=== PATIENT | female | born 1960 | race Caucasian/White ===

== ENCOUNTER 2017-03-02 13:55 | Emergency (ER) | payer MEDICARE, MEDICAID ==
[~2017-03-02] VITALS: Ht 157.5 cm; Wt 60.0 kg
[~2017-03-02 13:55] MED LIST: ALBU8.5H3 INH; ASPI-496 PO; ATOR10TA PO; CEFD300C2 PO; FLUT10.6 INH; HYDR-3240 PO; LEVO750T26 PO; PRED20TA PO; [UNRECOGNIZED DRUG - CODE] PO
[2017-03-02 14:08] VITALS: BP 120/73
== END 2017-03-02 15:00 | disposition home or self-care (01) ==
LOC: ED 14:50
DX: J45.909 Unspecified asthma, uncomplicated (principal); F12.10 Cannabis abuse, uncomplicated; J44.9 Chronic obstructive pulmonary disease, unspecified; F19.10 Other psychoactive substance abuse, uncomplicated
CPT/HCPCS: 99283

== ENCOUNTER 2017-03-06 11:05 | Emergency (ER) | payer MEDICARE, MEDICAID ==
[~2017-03-06] VITALS: Ht 157.5 cm; Wt 62.2 kg
[2017-03-06] MEDS ORDERED: SODIUM CHLORIDE FLUSH 10ML SYR IVF ONE (14:00)
[2017-03-06] MEDS ORDERED: FAMOTIDINE 20 MG/2 ML IVP ONE (14:00)
[2017-03-06] MEDS ORDERED: SODIUM CHLORIDE 0.9% 1,000ML IVBOLUS ONE (14:00)
[2017-03-06] MEDS ORDERED: ONDANSETRON 2MG/ML, 2ML IVPush ONE (14:00)
[2017-03-06] MEDS ORDERED: KETOROLAC 30 MG/1 ML IVPush ONE (14:00)
[2017-03-06 14:32] LABS: ASPARTATE AMINO TRANSFERASE 21 U/L (15-37); BLOOD UREA NITROGEN 13 mg/dL (7-18)
[2017-03-06] MEDS ORDERED: ONDANSETRON 2MG/ML, 2ML ONE (14:42)
[2017-03-06] MEDS ORDERED: KETOROLAC 30 MG/1 ML ONE (14:42)
[2017-03-06] MEDS ORDERED: FAMOTIDINE 20 MG/2 ML ONE (14:43)
[2017-03-06 15:23] VITALS: BP 120/60
== END 2017-03-06 16:02 | disposition home or self-care (01) ==
LOC: ED 15:11
DX: R10.33 Periumbilical pain (principal); J44.9 Chronic obstructive pulmonary disease, unspecified; J45.909 Unspecified asthma, uncomplicated; Z90.710 Acquired absence of both cervix and uterus; Z87.01 Personal history of pneumonia (recurrent)
CPT/HCPCS: 36415; 74022; 80053; 81001; 83690; 85025; 96374; 96375; 99285; J1885; J2405; J7030; S0028

== ENCOUNTER 2017-03-21 17:57 | Emergency (ER) | payer MEDICARE, MEDICAID ==
[~2017-03-21] VITALS: Ht 157.5 cm; Wt 60.0 kg
[2017-03-21 18:31] VITALS: BP 120/83
== END 2017-03-21 19:14 | disposition home or self-care (01) ==
LOC: ED 18:39
DX: K41.91 Unilateral femoral hernia, without obstruction or gangrene, recurrent (principal); J44.9 Chronic obstructive pulmonary disease, unspecified; J45.909 Unspecified asthma, uncomplicated; K29.70 Gastritis, unspecified, without bleeding; F12.10 Cannabis abuse, uncomplicated; Z90.710 Acquired absence of both cervix and uterus; Z98.890 Other specified postprocedural states; Z98.51 Tubal ligation status
CPT/HCPCS: 99283

== ENCOUNTER 2017-03-26 03:38 | Emergency (ER) | payer MEDICARE, MEDICAID ==
[~2017-03-26] VITALS: Ht 154.9 cm; Wt 57.0 kg
[~2017-03-26 03:38] MED LIST changes: -CEFD300C2 PO; +CEFD300C37 PO
[2017-03-26 03:40] VITALS: BP 124/78
== END 2017-03-26 04:41 | disposition home or self-care (01) ==
LOC: ED 04:04
DX: M79.672 Pain in left foot (principal); M79.671 Pain in right foot; J44.9 Chronic obstructive pulmonary disease, unspecified; Z90.710 Acquired absence of both cervix and uterus; Z98.51 Tubal ligation status; Z93.0 Tracheostomy status
CPT/HCPCS: 99283

== ENCOUNTER 2017-03-26 13:07 | Emergency (ER) | payer MEDICARE, MEDICAID ==
[~2017-03-26] VITALS: Ht 170.2 cm; Wt 70.0 kg
[2017-03-26 13:08] VITALS: BP 145/90
[2017-03-26] MEDS ORDERED: SODIUM CHLORIDE 0.9% 1,000 ML IV ONE (13:21)
[2017-03-26] MEDS ORDERED: FAMOTIDINE 20 MG/2 ML IVP ONE (13:30)
[2017-03-26] MEDS ORDERED: MAALOX/HYOSCYAMINE/LIDOCAINE 45 ML BOTTLE PO ONE (13:30)
[2017-03-26] MEDS ORDERED: ONDANSETRON 2MG/ML, 2ML IVPush ONE (13:30)
[2017-03-26 14:04] LABS: ASPARTATE AMINO TRANSFERASE 27 U/L (15-37); BLOOD UREA NITROGEN 10 mg/dL (7-18)
[2017-03-26] MEDS ORDERED: MAALOX/HYOSCYAMINE/LIDOCAINE 45 ML BOTTLE ONE (14:31)
[2017-03-26] MEDS ORDERED: ONDANSETRON 2MG/ML, 2ML ONE (14:32)
[2017-03-26] MEDS ORDERED: FAMOTIDINE 20 MG/2 ML ONE (14:32)
[2017-03-26] MEDS ORDERED: CEFTRIAXONE PMX 1GM/50ML 50 ML IV SCH (16:00)
[2017-03-26 16:29] LABS: DAU SCREEN DISCLAIMER
[2017-03-26] MEDS ORDERED: CEFTRIAXONE PMX 1GM/50ML 50 ML ONE (16:29)
[2017-03-26 16:37] LABS: PATH.CAST-FLAG NOT PRESENT; SPERM-FLAG NOT PRESENT; SRC-FLAG NOT PRESENT; XTAL-FLAG NOT PRESENT; YLC-FLAG NOT PRESENT
== END 2017-03-26 17:41 | disposition home or self-care (01) ==
LOC: ED 13:51
DX: J44.1 Chronic obstructive pulmonary disease with (acute) exacerbation (principal); J01.00 Acute maxillary sinusitis, unspecified; N30.20 Other chronic cystitis without hematuria; I10 Essential (primary) hypertension; F10.20 Alcohol dependence, uncomplicated; Z90.710 Acquired absence of both cervix and uterus; Z98.51 Tubal ligation status; Z88.1 Allergy status to other antibiotic agents; Z91.012 Allergy to eggs
CPT/HCPCS: 36415; 70450; 71010; 76700; 80053; 80307; 81001; 83605; 83690; 85025; 87040; 87077; 87086; 87186; 93005; 96361; 96365; 96375; 99285; J0696; J2405; J7030; J7512; S0028

== ENCOUNTER 2017-04-06 13:37 | Emergency (ER) | payer MEDICARE, MEDICAID ==
[~2017-04-06] VITALS: Ht 144.8 cm; Wt 58.0 kg
[2017-04-06 13:56] VITALS: BP 120/60
== END 2017-04-06 14:14 | disposition home or self-care (01) ==
LOC: ED 13:54
DX: K40.91 Unilateral inguinal hernia, without obstruction or gangrene, recurrent (principal); R10.31 Right lower quadrant pain; J44.9 Chronic obstructive pulmonary disease, unspecified; Z90.710 Acquired absence of both cervix and uterus; Z98.51 Tubal ligation status; Z88.1 Allergy status to other antibiotic agents; Z91.012 Allergy to eggs
CPT/HCPCS: 99283

== ENCOUNTER 2017-06-11 23:06 | Emergency (ER) | payer MEDICARE, MEDICAID ==
[~2017-06-11] VITALS: Ht 157.5 cm; Wt 59.0 kg
[2017-06-11 23:08] VITALS: BP 141/86
== END 2017-06-12 01:31 | disposition home or self-care (01) ==
LOC: ED 23:25
DX: J45.31 Mild persistent asthma with (acute) exacerbation (principal); Z87.891 Personal history of nicotine dependence; F12.90 Cannabis use, unspecified, uncomplicated
CPT/HCPCS: 71020; 93005; 99284; J7512

== ENCOUNTER 2017-08-14 19:29 | Observation (INO) | payer MEDICARE, MEDICAID ==
[~2017-08-14] VITALS: Ht 157.5 cm; Wt 53.0 kg
[~2017-08-14 19:29] MED LIST changes: -ALBU8.5H3 INH; +ALBU8.5H8 INH
[2017-08-14] MEDS ORDERED: MAALOX/HYOSCYAMINE/LIDOCAINE 45 ML BTL ONE (19:45)
[2017-08-14] MEDS ORDERED: LORazepam 1MG TABLET ONE (19:45)
[2017-08-14 19:54] LABS: HEMATOCRIT 40.2 % (34.6-47.8); WHITE BLOOD COUNT 6.5 x10^3/uL (3.4-10)
[2017-08-14] MEDS ORDERED: MAALOX/HYOSCYAMINE/LIDOCAINE 45 ML BTL PO ONE (20:00)
[2017-08-14] MEDS ORDERED: LORazepam 1MG TABLET PO ONE (20:00)
[2017-08-14] MEDS ORDERED: PLEASE ENTER HEIGHT AND WEIGHT MC SCH (20:00)
[2017-08-14 20:06] LABS: ASPARTATE AMINO TRANSFERASE 20 U/L (15-37); BLOOD UREA NITROGEN 7 mg/dL (7-18)
[2017-08-14 21:07] LABS: ACETAMINOPHEN < 2 mcg/mL (10-30)
[2017-08-15] MEDS ORDERED: BISACODYL 10 MG SUPP PR PRN (01:00)
[2017-08-15] MEDS ORDERED: ALBUTEROL SULFATE 2.5 MG/3 ML NPPB PRN (01:00)
[2017-08-15] MEDS ORDERED: POLYETHYLENE GLYCOL 17 GM PACKET PO PRN (01:00)
[2017-08-15] MEDS ORDERED: LORazepam 1MG TABLET PO PRN (01:00)
[2017-08-15] MEDS ORDERED: ONDANSETRON ODT 4 MG PO PRN (01:00)
[2017-08-15] MEDS ORDERED: ACETAMINOPHEN 325 MG TABLET PO PRN (01:00)
[2017-08-15 01:12] LABS: FERRITIN 14.6 ng/mL (8-252)
[2017-08-15 06:43] LABS: DAU SCREEN DISCLAIMER
[2017-08-15] MEDS: OLANZAPINE 2.5 MG TABLET PO SCH ×2 (07:04→20:36)
[2017-08-15 07:14] LABS: PATH.CAST-FLAG NOT PRESENT; SPERM-FLAG NOT PRESENT; SRC-FLAG NOT PRESENT; XTAL-FLAG NOT PRESENT; YLC-FLAG NOT PRESENT
[2017-08-15] MEDS ORDERED: SENNA/DOCUSATE TABLET ONE (08:03)
[2017-08-15] MEDS ORDERED: ONDANSETRON ODT 4 MG ONE (08:03)
[2017-08-15] MEDS ORDERED: LORazepam 1MG TABLET ONE (08:03)
[2017-08-15] MEDS ORDERED: ASPIRIN 81 MG TABLET CHEW ONE (08:04)
[2017-08-15] MEDS: SENNA/DOCUSATE TABLET PO SCH (08:07)
[2017-08-15] MEDS: ASPIRIN 81 MG TABLET EC PO SCH (09:49)
[2017-08-15 18:27] VITALS: BP 145/95
[2017-08-15 19:51] VITALS: BP 143/87
[2017-08-16] MEDS ORDERED: FERROUS SULFATE 325 MG TABLET PO SCH (08:00)
[2017-08-16 08:15] VITALS: BP 133/77
[2017-08-16] MEDS: SENNA/DOCUSATE TABLET PO SCH (08:24)
[2017-08-16] MEDS: ASPIRIN 81 MG TABLET EC PO SCH (08:24)
[2017-08-16 19:31] VITALS: BP 157/91
[2017-08-16] MEDS: OLANZAPINE 2.5 MG TABLET PO SCH (20:06)
== END 2017-08-16 20:30 ==
LOC: ED 21:48 → EDIP 08-15 00:39 → 3E 08-15 18:17
PROVIDERS: ADMIT Family Medicine; ATTEND Family Medicine
DX: R45.851 Suicidal ideations (principal); F31.9 Bipolar disorder, unspecified; R10.30 Lower abdominal pain, unspecified; I10 Essential (primary) hypertension; J44.9 Chronic obstructive pulmonary disease, unspecified; F12.10 Cannabis abuse, uncomplicated; E61.1 Iron deficiency; Z86.19 Personal history of other infectious and parasitic diseases; Z87.19 Personal history of other diseases of the digestive system; Z98.51 Tubal ligation status; Z90.710 Acquired absence of both cervix and uterus
CPT/HCPCS: 36415; 80053; 80307; 80329; 81001; 82728; 83540; 83550; 83690; 85025; 87086; 93005; 94640; 99285; G0378; Q0162; J7613; G0479; G0480

== ENCOUNTER 2017-12-28 22:02 | Emergency (ER) | payer MEDICARE, MEDICAID ==
[~2017-12-28] VITALS: Ht 157.5 cm; Wt 49.0 kg
[~2017-12-28 22:02] MED LIST changes: +ALBU18HF INH; +TRAZ100T15 PO
[2017-12-28 22:06] VITALS: BP 104/79
[2017-12-29] MEDS ORDERED: ALBUTEROL/IPRATROPIUM 2.5MG/0.5MG, 3 ML ONE ×2 (00:48→00:49)
[2017-12-29] MEDS ORDERED: ALBUTEROL/IPRATROPIUM 2.5MG/0.5MG, 3 ML NPPB SCH (01:00)
== END 2017-12-29 01:58 | disposition home or self-care (01) ==
LOC: ED 12-29 00:18
DX: J45.31 Mild persistent asthma with (acute) exacerbation (principal); I10 Essential (primary) hypertension; Z90.710 Acquired absence of both cervix and uterus
CPT/HCPCS: 71045; 94640; 99283; J7512

== ENCOUNTER 2018-01-17 23:30 | Emergency (ER) | payer MEDICARE, MEDICAID ==
[~2018-01-17] VITALS: Ht 157.5 cm; Wt 50.0 kg
[~2018-01-17 23:30] MED LIST changes: +ALBU2.5V NPPB
[2018-01-18] MEDS ORDERED: predniSONE 50MG TABLET PO STA (00:29)
[2018-01-18 00:35] VITALS: BP 136/74
== END 2018-01-18 00:53 | disposition home or self-care (01) ==
LOC: ED 23:59
DX: J45.41 Moderate persistent asthma with (acute) exacerbation (principal); I10 Essential (primary) hypertension; Z90.710 Acquired absence of both cervix and uterus; Z98.51 Tubal ligation status; F17.200 Nicotine dependence, unspecified, uncomplicated
CPT/HCPCS: 99283; J7512

== ENCOUNTER 2018-02-13 00:18 | Emergency (ER) | payer MEDICARE, MEDICAID ==
[~2018-02-13] VITALS: Ht 157.5 cm; Wt 50.0 kg
[2018-02-13] MEDS ORDERED: RANI-276 PO (00:41)
[2018-02-13] MEDS ORDERED: FLUT100D INH (00:41)
[2018-02-13 01:16] LABS: BASOPHILS # (AUTO) 0.03 x10^3/uL (0-0.1); BASOPHILS % (AUTO) 1 % (0-1); EOSINOPHILS # (AUTO) 0.69 x10^3/uL (0-0.4); EOSINOPHILS % (AUTO) 10 % (1-7); LYMPHOCYTES # (AUTO) 1.04 x10^3/uL (1-3.4); LYMPHOCYTES % (AUTO) 15 % (22-44); MD NO; MEAN CORPUSCULAR HGB CONC 33.3 g/dL (32.4-35.8); MEAN CORPUSCULAR VOLUME 83.9 fL (80-100); MEAN PLATELET VOLUME 7.3 fL (7.4-10.4); MONOCYTES # (AUTO) 0.51 x10^3/uL (0.2-0.8); MONOCYTES % (AUTO) 8 % (2-9); NEUTROPHILS % (AUTO) 66 % (42-75); PLATELET COUNT 299 x10^3/uL (130-400); RED BLOOD COUNT 5.07 x10^6/uL (3.82-5.3)
[2018-02-13 01:21] LABS: ALANINE AMINOTRANSFERASE 29 U/L (12-78); ALBUMIN 3.7 g/dL (3.4-5.0); ANION GAP 7 mmol/L (5-15); CALCIUM 9.8 mg/dL (8.5-10.1); CHLORIDE 110 mmol/L (98-107); CREATININE 0.55 mg/dL (0.55-1.02)
[2018-02-13 01:23] LABS: ALKALINE PHOSPHATASE 131 U/L (45-117); BILIRUBIN,TOTAL 0.4 mg/dL (0.2-1.0); TOTAL PROTEIN 7.2 g/dL (6.4-8.2)
[2018-02-13 02:06] LABS: CULTURE INDICATED? YES; MICROSCOPIC INDICATED
[2018-02-13 03:12] VITALS: BP 129/80
== END 2018-02-13 03:50 | disposition home or self-care (01) ==
LOC: ED 00:24
DX: R10.31 Right lower quadrant pain (principal); R10.30 Lower abdominal pain, unspecified; R10.32 Left lower quadrant pain; J44.9 Chronic obstructive pulmonary disease, unspecified; I10 Essential (primary) hypertension; F31.9 Bipolar disorder, unspecified; Z90.710 Acquired absence of both cervix and uterus; B18.1 Chronic viral hepatitis B without delta-agent
CPT/HCPCS: 36415; 80053; 81001; 85025; 99284

== ENCOUNTER 2018-03-06 07:12 | Emergency (ER) | payer MEDICARE, MEDICAID ==
[~2018-03-06] VITALS: Ht 157.5 cm; Wt 47.0 kg
[~2018-03-06 07:12] MED LIST changes: +FLUT100D INH; +RANI-276 PO
[2018-03-06] MEDS ORDERED: MAALOX/HYOSCYAMINE/LIDOCAINE 45 ML BTL PO ONE (07:30)
[2018-03-06 07:45] LABS: BASOPHILS # (AUTO) 0.02 x10^3/uL (0-0.1); BASOPHILS % (AUTO) 0 % (0-1); EOSINOPHILS # (AUTO) 0.64 x10^3/uL (0-0.4); EOSINOPHILS % (AUTO) 10 % (1-7); LYMPHOCYTES % (AUTO) 20 % (22-44); MD NO; MEAN CORPUSCULAR HEMOGLOBIN 27.9 pg (27.0-34.8); MEAN CORPUSCULAR VOLUME 84.5 fL (80-100); MEAN PLATELET VOLUME 6.9 fL (7.4-10.4); MONOCYTES # (AUTO) 0.41 x10^3/uL (0.2-0.8); MONOCYTES % (AUTO) 6 % (2-9); NEUTROPHILS # (AUTO) 4.08 x10^3/uL (1.8-6.8); NEUTROPHILS % (AUTO) 63 % (42-75); PLATELET COUNT 276 x10^3/uL (130-400); RED BLOOD COUNT 5.25 x10^6/uL (3.82-5.3); RED CELL DISTRIBUTION WIDTH 16.3 % (9.6-15.2)
[2018-03-06 07:57] LABS: ALANINE AMINOTRANSFERASE 45 U/L (12-78); ALBUMIN 3.6 g/dL (3.4-5.0); ANION GAP 8 mmol/L (5-15); CALCIUM 9.4 mg/dL (8.5-10.1); CHLORIDE 107 mmol/L (98-107); CREATININE 0.68 mg/dL (0.55-1.02)
[2018-03-06 08:00] VITALS: BP 136/70
[2018-03-06] MEDS ORDERED: MAALOX/HYOSCYAMINE/LIDOCAINE 45 ML BTL ONE (08:01)
[2018-03-06 08:02] LABS: ALKALINE PHOSPHATASE 162 U/L (45-117); BILIRUBIN,TOTAL 0.2 mg/dL (0.2-1.0); TOTAL PROTEIN 7.4 g/dL (6.4-8.2); TROPONIN I < 0.015 ng/mL (0.000-0.045)
[2018-03-06] MEDS ORDERED: ranitidine PO (17:50)
== END 2018-03-06 08:36 | disposition home or self-care (01) ==
LOC: ED 07:35
DX: J44.1 Chronic obstructive pulmonary disease with (acute) exacerbation (principal); K21.0 Gastro-esophageal reflux disease with esophagitis; K52.9 Noninfective gastroenteritis and colitis, unspecified; I10 Essential (primary) hypertension; J45.909 Unspecified asthma, uncomplicated
CPT/HCPCS: 36415; 71045; 80053; 83690; 83880; 84484; 85025; 93005; 99285

== ENCOUNTER 2018-03-06 16:07 | Emergency (ER) | payer MEDICARE, MEDICAID ==
[~2018-03-06] VITALS: Ht 157.5 cm; Wt 47.0 kg
[2018-03-06] MEDS ORDERED: ranitidine PO (17:50)
[2018-03-06] MEDS ORDERED: ALUMINUM/MAG/SIMETHICONE 30 ML UDC PO ONE (18:00)
[2018-03-06 18:08] LABS: BASOPHILS # (AUTO) 0.07 x10^3/uL (0-0.1); BASOPHILS % (AUTO) 1 % (0-1); EOSINOPHILS # (AUTO) 0.51 x10^3/uL (0-0.4); EOSINOPHILS % (AUTO) 7 % (1-7); LYMPHOCYTES # (AUTO) 1.44 x10^3/uL (1-3.4); LYMPHOCYTES % (AUTO) 20 % (22-44); MD NO; MEAN PLATELET VOLUME 6.9 fL (7.4-10.4); MONOCYTES # (AUTO) 0.48 x10^3/uL (0.2-0.8); MONOCYTES % (AUTO) 7 % (2-9); NEUTROPHILS # (AUTO) 4.64 x10^3/uL (1.8-6.8); NEUTROPHILS % (AUTO) 65 % (42-75); PLATELET COUNT 326 x10^3/uL (130-400); RED BLOOD COUNT 5.26 x10^6/uL (3.82-5.3); RED CELL DISTRIBUTION WIDTH 16.3 % (9.6-15.2)
[2018-03-06 18:19] LABS: ALANINE AMINOTRANSFERASE 43 U/L (12-78); ANION GAP 9 mmol/L (5-15); CALCIUM 10.1 mg/dL (8.5-10.1); CHLORIDE 107 mmol/L (98-107); CREATININE 0.69 mg/dL (0.55-1.02)
[2018-03-06 18:22] LABS: ALKALINE PHOSPHATASE 162 U/L (45-117); BILIRUBIN,TOTAL 0.4 mg/dL (0.2-1.0); TOTAL PROTEIN 7.8 g/dL (6.4-8.2)
[2018-03-06] MEDS ORDERED: ALUMINUM/MAG/SIMETHICONE 30 ML UDC ONE (18:23)
[2018-03-06 18:41] LABS: MICROSCOPIC AUTO
[2018-03-06 18:46] LABS: CULTURE INDICATED? YES
[2018-03-06 19:17] VITALS: BP 137/80
== END 2018-03-06 19:19 | disposition home or self-care (01) ==
LOC: ED 18:53
DX: K29.50 Unspecified chronic gastritis without bleeding (principal); Z90.710 Acquired absence of both cervix and uterus; I10 Essential (primary) hypertension; J44.9 Chronic obstructive pulmonary disease, unspecified; K21.9 Gastro-esophageal reflux disease without esophagitis
CPT/HCPCS: 36415; 74022; 80053; 81001; 83690; 85025; 87086; 99285

== ENCOUNTER 2018-03-15 11:25 | Emergency (ER) | payer MEDICARE, MEDICAID ==
[~2018-03-15] VITALS: Ht 157.5 cm; Wt 44.3 kg
[~2018-03-15 11:25] MED LIST changes: +ranitidine PO
[2018-03-15 12:54] LABS: BASOPHILS # (AUTO) 0.04 x10^3/uL (0-0.1); BASOPHILS % (AUTO) 1 % (0-1); EOSINOPHILS # (AUTO) 0.42 x10^3/uL (0-0.4); EOSINOPHILS % (AUTO) 7 % (1-7); LYMPHOCYTES # (AUTO) 1.13 x10^3/uL (1-3.4); LYMPHOCYTES % (AUTO) 18 % (22-44); MD NO; MEAN CORPUSCULAR HEMOGLOBIN 28.2 pg (27.0-34.8); MEAN CORPUSCULAR HGB CONC 33.4 g/dL (32.4-35.8); MEAN CORPUSCULAR VOLUME 84.4 fL (80-100); MEAN PLATELET VOLUME 7.5 fL (7.4-10.4); MONOCYTES # (AUTO) 0.43 x10^3/uL (0.2-0.8); MONOCYTES % (AUTO) 7 % (2-9); NEUTROPHILS # (AUTO) 4.12 x10^3/uL (1.8-6.8); NEUTROPHILS % (AUTO) 67 % (42-75); PLATELET COUNT 263 x10^3/uL (130-400); RED BLOOD COUNT 5.74 x10^6/uL (3.82-5.3); RED CELL DISTRIBUTION WIDTH 16.1 % (9.6-15.2)
[2018-03-15 13:28] LABS: ALBUMIN 4.3 g/dL (3.4-5.0); ANION GAP 12 mmol/L (5-15); CALCIUM 10.4 mg/dL (8.5-10.1); CHLORIDE 108 mmol/L (98-107)
[2018-03-15 13:32] LABS: ALANINE AMINOTRANSFERASE 30 U/L (12-78); ALKALINE PHOSPHATASE 180 U/L (45-117); BILIRUBIN,TOTAL 0.8 mg/dL (0.2-1.0); CREATININE 0.91 mg/dL (0.55-1.02); TOTAL PROTEIN 8.6 g/dL (6.4-8.2)
[2018-03-15 16:15] LABS: MICROSCOPIC INDICATED
[2018-03-15 16:24] LABS: CULTURE INDICATED? YES
[2018-03-15 17:29] VITALS: BP 116/80
== END 2018-03-15 17:31 | disposition home or self-care (01) ==
LOC: ED 16:55
DX: K59.00 Constipation, unspecified (principal); J44.9 Chronic obstructive pulmonary disease, unspecified; K21.9 Gastro-esophageal reflux disease without esophagitis; I10 Essential (primary) hypertension; F10.20 Alcohol dependence, uncomplicated
CPT/HCPCS: 36415; 80053; 81001; 83690; 85025; 87086; 87147; 99284

== ENCOUNTER 2018-08-13 05:22 | Emergency (ER) | payer MEDICARE, MEDICAID ==
[~2018-08-13] VITALS: Ht 157.5 cm; Wt 45.5 kg
[~2018-08-13 05:22] MED LIST changes: +TRAZ-137 PO; -TRAZ100T15 PO
[2018-08-13] MEDS ORDERED: SODIUM CHLORIDE 0.9% 1,000ML IVBOLUS ONE (06:00)
[2018-08-13] MEDS ORDERED: MAALOX/HYOSCYAMINE/LIDOCAINE 45 ML BTL PO ONE (06:00)
[2018-08-13] MEDS ORDERED: FAMOTIDINE 20 MG/2 ML IVP ONE (06:00)
[2018-08-13] MEDS ORDERED: SODIUM CHLORIDE FLUSH 10ML SYR IVF ONE (06:00)
[2018-08-13] MEDS ORDERED: FAMOTIDINE 20 MG/2 ML ONE (06:15)
[2018-08-13] MEDS ORDERED: MAALOX/HYOSCYAMINE/LIDOCAINE 45 ML BTL ONE (06:15)
[2018-08-13 06:44] LABS: MICROSCOPIC NOT IND
[2018-08-13 06:46] LABS: CULTURE INDICATED? NO
[2018-08-13] MEDS ORDERED: OMNIPAQUE 350 MG/ML, 100ML BOTTLE ONE (06:47)
[2018-08-13 07:35] LABS: BASOPHILS # (AUTO) 0.03 x10^3/uL (0-0.1); BASOPHILS % (AUTO) 1 % (0-1); EOSINOPHILS # (AUTO) 0.28 x10^3/uL (0-0.4); EOSINOPHILS % (AUTO) 7 % (1-7); LYMPHOCYTES # (AUTO) 0.77 x10^3/uL (1-3.4); LYMPHOCYTES % (AUTO) 18 % (22-44); MD NO; MEAN CORPUSCULAR HGB CONC 33.6 g/dL (32.4-35.8); MEAN CORPUSCULAR VOLUME 83.5 fL (80-100); MEAN PLATELET VOLUME 6.6 fL (7.4-10.4); MONOCYTES # (AUTO) 0.36 x10^3/uL (0.2-0.8); MONOCYTES % (AUTO) 9 % (2-9); NEUTROPHILS # (AUTO) 2.81 x10^3/uL (1.8-6.8); NEUTROPHILS % (AUTO) 66 % (42-75); PLATELET COUNT 267 x10^3/uL (130-400); RED CELL DISTRIBUTION WIDTH 17.2 % (9.6-15.2)
[2018-08-13 07:40] LABS: ALANINE AMINOTRANSFERASE 25 U/L (12-78); ALBUMIN 3.4 g/dL (3.4-5.0); ANION GAP 7 mmol/L (5-15); CALCIUM 8.8 mg/dL (8.5-10.1); CHLORIDE 112 mmol/L (98-107)
[2018-08-13 07:43] LABS: ALKALINE PHOSPHATASE 104 U/L (45-117); BILIRUBIN,TOTAL 0.5 mg/dL (0.2-1.0); TOTAL PROTEIN 6.5 g/dL (6.4-8.2)
[2018-08-13 08:35] VITALS: BP 134/77
== END 2018-08-13 09:13 | disposition home or self-care (01) ==
LOC: ED 05:57
DX: R10.33 Periumbilical pain (principal); R11.2 Nausea with vomiting, unspecified; I10 Essential (primary) hypertension; K21.9 Gastro-esophageal reflux disease without esophagitis; J45.909 Unspecified asthma, uncomplicated; Z90.710 Acquired absence of both cervix and uterus; Z98.51 Tubal ligation status; Z91.012 Allergy to eggs; Z93.0 Tracheostomy status; Z88.1 Allergy status to other antibiotic agents
CPT/HCPCS: 36415; 74177; 80053; 81003; 83605; 83690; 85025; 87040; 96361; 96374; 99285; J7030; Q9967; S0028

== ENCOUNTER 2018-08-27 12:01 | Emergency (ER) | payer MEDICARE, MEDICAID ==
[~2018-08-27] VITALS: Ht 157.5 cm; Wt 43.0 kg
[2018-08-27 12:52] LABS: BASOPHILS # (AUTO) 0.05 x10^3/uL (0-0.1); BASOPHILS % (AUTO) 1 % (0-1); EOSINOPHILS # (AUTO) 0.34 x10^3/uL (0-0.4); EOSINOPHILS % (AUTO) 6 % (1-7); LYMPHOCYTES # (AUTO) 1.34 x10^3/uL (1-3.4); LYMPHOCYTES % (AUTO) 22 % (22-44); MD NO; MEAN CORPUSCULAR HEMOGLOBIN 28.6 pg (27.0-34.8); MEAN CORPUSCULAR HGB CONC 33.8 g/dL (32.4-35.8); MEAN CORPUSCULAR VOLUME 84.7 fL (80-100); MEAN PLATELET VOLUME 7.7 fL (7.4-10.4); MONOCYTES # (AUTO) 0.45 x10^3/uL (0.2-0.8); MONOCYTES % (AUTO) 7 % (2-9); NEUTROPHILS # (AUTO) 4.02 x10^3/uL (1.8-6.8); NEUTROPHILS % (AUTO) 65 % (42-75); PLATELET COUNT 307 x10^3/uL (130-400); RED CELL DISTRIBUTION WIDTH 17.3 % (9.6-15.2)
[2018-08-27 13:01] LABS: ALANINE AMINOTRANSFERASE 22 U/L (12-78); ALBUMIN 3.3 g/dL (3.4-5.0); ANION GAP 6 mmol/L (5-15); CHLORIDE 114 mmol/L (98-107); CREATININE 0.72 mg/dL (0.55-1.02)
[2018-08-27 13:03] LABS: ALKALINE PHOSPHATASE 92 U/L (45-117); BILIRUBIN,TOTAL 0.2 mg/dL (0.2-1.0); TOTAL PROTEIN 6.7 g/dL (6.4-8.2)
[2018-08-27 13:15] LABS: CULTURE INDICATED? YES; MICROSCOPIC AUTO
[2018-08-27 13:33] VITALS: BP 116/70
== END 2018-08-27 13:49 | disposition home or self-care (01) ==
LOC: ED 13:43
DX: R10.30 Lower abdominal pain, unspecified (principal); F41.1 Generalized anxiety disorder; K21.9 Gastro-esophageal reflux disease without esophagitis; F31.9 Bipolar disorder, unspecified; I10 Essential (primary) hypertension; J44.9 Chronic obstructive pulmonary disease, unspecified; Z90.710 Acquired absence of both cervix and uterus
CPT/HCPCS: 36415; 80053; 81001; 83690; 85025; 87086; 99284

== ENCOUNTER 2018-08-28 13:39 | Emergency (ER) | payer MEDICARE, MEDICAID ==
[~2018-08-28] VITALS: Ht 157.5 cm; Wt 50.0 kg
[2018-08-28] MEDS ORDERED: DICYCLOMINE 20 MG TABLET ONE (13:58)
[2018-08-28] MEDS ORDERED: DICYCLOMINE 20 MG TABLET PO ONE (14:00)
[2018-08-28 14:07] LABS: BASOPHILS # (AUTO) 0.06 x10^3/uL (0-0.1); BASOPHILS % (AUTO) 1 % (0-1); EOSINOPHILS % (AUTO) 5 % (1-7); LYMPHOCYTES # (AUTO) 1.09 x10^3/uL (1-3.4); LYMPHOCYTES % (AUTO) 20 % (22-44); MD NO; MEAN CORPUSCULAR HEMOGLOBIN 27.7 pg (27.0-34.8); MEAN CORPUSCULAR VOLUME 84.1 fL (80-100); MEAN PLATELET VOLUME 7.4 fL (7.4-10.4); MONOCYTES # (AUTO) 0.26 x10^3/uL (0.2-0.8); MONOCYTES % (AUTO) 5 % (2-9); NEUTROPHILS # (AUTO) 3.84 x10^3/uL (1.8-6.8); NEUTROPHILS % (AUTO) 69 % (42-75); PLATELET COUNT 305 x10^3/uL (130-400); RED BLOOD COUNT 4.33 x10^6/uL (3.82-5.3); RED CELL DISTRIBUTION WIDTH 17.6 % (9.6-15.2)
[2018-08-28 14:18] LABS: ALANINE AMINOTRANSFERASE 22 U/L (12-78); ALBUMIN 3.4 g/dL (3.4-5.0); ANION GAP 8 mmol/L (5-15); CALCIUM 9.1 mg/dL (8.5-10.1); CHLORIDE 112 mmol/L (98-107)
[2018-08-28 14:23] LABS: ALKALINE PHOSPHATASE 82 U/L (45-117); BILIRUBIN,TOTAL 0.2 mg/dL (0.2-1.0); CREATININE 0.81 mg/dL (0.55-1.02); TOTAL PROTEIN 6.6 g/dL (6.4-8.2)
[2018-08-28 15:28] VITALS: BP 127/67
== END 2018-08-28 15:29 | disposition home or self-care (01) ==
LOC: ED 15:08
DX: R10.84 Generalized abdominal pain (principal); I10 Essential (primary) hypertension; F41.1 Generalized anxiety disorder; K21.9 Gastro-esophageal reflux disease without esophagitis; J44.9 Chronic obstructive pulmonary disease, unspecified; F31.9 Bipolar disorder, unspecified; Z90.710 Acquired absence of both cervix and uterus
CPT/HCPCS: 36415; 80053; 83690; 84703; 85025; 99284

== ENCOUNTER 2018-09-04 20:42 | Emergency (ER) | payer MEDICARE, MEDICAID ==
[~2018-09-04] VITALS: Ht 157.5 cm; Wt 51.8 kg
[2018-09-05 00:17] LABS: BASOPHILS # (AUTO) 0.06 x10^3/uL (0-0.1); BASOPHILS % (AUTO) 1 % (0-1); EOSINOPHILS # (AUTO) 0.26 x10^3/uL (0-0.4); EOSINOPHILS % (AUTO) 6 % (1-7); LYMPHOCYTES # (AUTO) 1.08 x10^3/uL (1-3.4); LYMPHOCYTES % (AUTO) 24 % (22-44); MD NO; MEAN CORPUSCULAR HEMOGLOBIN 28.4 pg (27.0-34.8); MEAN CORPUSCULAR HGB CONC 33.6 g/dL (32.4-35.8); MEAN CORPUSCULAR VOLUME 84.7 fL (80-100); MEAN PLATELET VOLUME 6.9 fL (7.4-10.4); MONOCYTES # (AUTO) 0.42 x10^3/uL (0.2-0.8); MONOCYTES % (AUTO) 9 % (2-9); NEUTROPHILS # (AUTO) 2.66 x10^3/uL (1.8-6.8); NEUTROPHILS % (AUTO) 59 % (42-75); PLATELET COUNT 283 x10^3/uL (130-400); RED BLOOD COUNT 4.31 x10^6/uL (3.82-5.3); RED CELL DISTRIBUTION WIDTH 17.5 % (9.6-15.2)
[2018-09-05 00:26] LABS: ALANINE AMINOTRANSFERASE 25 U/L (12-78); ALBUMIN 3.6 g/dL (3.4-5.0); ANION GAP 6 mmol/L (5-15); CALCIUM 8.6 mg/dL (8.5-10.1); CHLORIDE 108 mmol/L (98-107); CREATININE 0.77 mg/dL (0.55-1.02)
[2018-09-05 00:28] LABS: ALKALINE PHOSPHATASE 102 U/L (45-117); BILIRUBIN,TOTAL 0.5 mg/dL (0.2-1.0); TOTAL PROTEIN 6.8 g/dL (6.4-8.2)
[2018-09-05 00:38] LABS: MICROSCOPIC INDICATED
[2018-09-05 00:39] LABS: CULTURE INDICATED? YES
[2018-09-05 01:30] VITALS: BP 154/67
== END 2018-09-05 01:32 | disposition home or self-care (01) ==
LOC: ED 23:54
DX: R10.31 Right lower quadrant pain (principal); K21.9 Gastro-esophageal reflux disease without esophagitis; F31.9 Bipolar disorder, unspecified; J44.9 Chronic obstructive pulmonary disease, unspecified; F10.20 Alcohol dependence, uncomplicated; I10 Essential (primary) hypertension
CPT/HCPCS: 36415; 80053; 81001; 83690; 85025; 87086; 99284

== ENCOUNTER 2018-09-16 07:41 | Emergency (ER) | payer MEDICARE, MEDICAID ==
[~2018-09-16] VITALS: Ht 157.5 cm; Wt 48.0 kg
[2018-09-16 10:29] VITALS: BP 102/65
== END 2018-09-16 10:53 | disposition home or self-care (01) ==
LOC: ED 07:49
DX: J45.31 Mild persistent asthma with (acute) exacerbation (principal); F41.1 Generalized anxiety disorder; K21.9 Gastro-esophageal reflux disease without esophagitis; F31.9 Bipolar disorder, unspecified; I10 Essential (primary) hypertension; J44.9 Chronic obstructive pulmonary disease, unspecified; Z90.710 Acquired absence of both cervix and uterus; Z93.0 Tracheostomy status
CPT/HCPCS: 71046; 99284

== ENCOUNTER 2018-09-16 21:19 | Emergency (ER) | payer MEDICARE, MEDICAID ==
[~2018-09-16] VITALS: Ht 157.5 cm; Wt 44.5 kg
[2018-09-16] MEDS ORDERED: ALBUTEROL SULFATE 2.5 MG/3 ML ONE (21:38)
[2018-09-16] MEDS ORDERED: DEXAMETHASONE 4 MG TABLET ONE (21:44)
[2018-09-16] MEDS ORDERED: DEXAMETHASONE 4 MG TABLET PO ONE (22:00)
[2018-09-16] MEDS ORDERED: ALBUTEROL SULFATE 2.5 MG/3 ML NPPB ONE (22:00)
[2018-09-16 22:15] VITALS: BP 111/65
== END 2018-09-16 22:16 | disposition home or self-care (01) ==
LOC: ED 21:28
DX: J45.31 Mild persistent asthma with (acute) exacerbation (principal); J45.21 Mild intermittent asthma with (acute) exacerbation; I10 Essential (primary) hypertension; K21.9 Gastro-esophageal reflux disease without esophagitis; F31.9 Bipolar disorder, unspecified; Z72.9 Problem related to lifestyle, unspecified
CPT/HCPCS: 93005; 94640; 99283; J7613

== ENCOUNTER 2018-09-18 01:37 | Emergency (ER) | payer MEDICARE, MEDICAID ==
[~2018-09-18] VITALS: Ht 162.6 cm; Wt 45.5 kg
[2018-09-18] MEDS ORDERED: PROMETHAZINE 25 MG/ML, 1ML ONE (01:51)
[2018-09-18] MEDS ORDERED: PROMETHAZINE 25 MG/ML, 1ML IM ONE (02:00)
[2018-09-18 02:04] LABS: BASOPHILS # (AUTO) 0.06 x10^3/uL (0-0.1); BASOPHILS % (AUTO) 1 % (0-1); EOSINOPHILS # (AUTO) 0.05 x10^3/uL (0-0.4); EOSINOPHILS % (AUTO) 1 % (1-7); LYMPHOCYTES # (AUTO) 1.21 x10^3/uL (1-3.4); LYMPHOCYTES % (AUTO) 18 % (22-44); MD NO; MEAN CORPUSCULAR HEMOGLOBIN 28.5 pg (27.0-34.8); MEAN CORPUSCULAR HGB CONC 33.7 g/dL (32.4-35.8); MEAN CORPUSCULAR VOLUME 84.7 fL (80-100); MEAN PLATELET VOLUME 6.8 fL (7.4-10.4); MONOCYTES # (AUTO) 0.42 x10^3/uL (0.2-0.8); MONOCYTES % (AUTO) 6 % (2-9); NEUTROPHILS # (AUTO) 5.11 x10^3/uL (1.8-6.8); NEUTROPHILS % (AUTO) 75 % (42-75); PLATELET COUNT 332 x10^3/uL (130-400); RED BLOOD COUNT 4.74 x10^6/uL (3.82-5.3); RED CELL DISTRIBUTION WIDTH 16.7 % (9.6-15.2)
[2018-09-18 02:16] LABS: CHLORIDE 105 mmol/L (98-107)
[2018-09-18 02:17] LABS: ALANINE AMINOTRANSFERASE 28 U/L (12-78); ANION GAP 13 mmol/L (5-15); CALCIUM 9.6 mg/dL (8.5-10.1); CREATININE 0.66 mg/dL (0.55-1.02)
[2018-09-18 02:19] LABS: ALKALINE PHOSPHATASE 105 U/L (45-117); BILIRUBIN,TOTAL 0.3 mg/dL (0.2-1.0); TOTAL PROTEIN 7.7 g/dL (6.4-8.2)
[2018-09-18] MEDS ORDERED: DICYCLOMINE 10 MG/ML, 2ML ONE (02:37)
[2018-09-18 02:44] VITALS: BP 143/66
[2018-09-18] MEDS ORDERED: DICYCLOMINE 10 MG/ML, 2ML IM ONE (03:00)
[2018-09-18] MEDS ORDERED: POTASSIUM CHLORIDE 10% 20 MEQ/15 ML UDC PO ONE (03:00)
== END 2018-09-18 02:59 | disposition home or self-care (01) ==
LOC: ED 02:02
DX: R10.84 Generalized abdominal pain (principal); R11.2 Nausea with vomiting, unspecified; E87.6 Hypokalemia; J44.9 Chronic obstructive pulmonary disease, unspecified; K21.9 Gastro-esophageal reflux disease without esophagitis; I10 Essential (primary) hypertension; Z90.710 Acquired absence of both cervix and uterus; F17.200 Nicotine dependence, unspecified, uncomplicated
CPT/HCPCS: 36415; 80053; 83690; 85025; 96372; 99284; J0500; J2550

== ENCOUNTER 2018-09-18 06:55 | Emergency (ER) | payer MEDICARE, MEDICAID ==
[~2018-09-18] VITALS: Ht 157.5 cm; Wt 47.0 kg
[2018-09-18 07:01] VITALS: BP 109/60
[2018-09-18] MEDS ORDERED: ONDANSETRON ODT 4 MG ONE (07:23)
[2018-09-18] MEDS ORDERED: ONDANSETRON ODT 4 MG PO ONE (07:30)
== END 2018-09-18 07:41 | disposition home or self-care (01) ==
LOC: ED 07:37
DX: R11.2 Nausea with vomiting, unspecified (principal); K21.9 Gastro-esophageal reflux disease without esophagitis; J44.9 Chronic obstructive pulmonary disease, unspecified; I10 Essential (primary) hypertension; F31.9 Bipolar disorder, unspecified; F41.1 Generalized anxiety disorder
CPT/HCPCS: 99283; Q0162

== ENCOUNTER 2018-10-28 01:39 | Emergency (ER) | payer MEDICARE, MEDICAID ==
[~2018-10-28] VITALS: Ht 157.5 cm; Wt 45.0 kg
[~2018-10-28 01:39] MED LIST changes: -RANI-276 PO; +RANI-448 PO
[2018-10-28 01:41] VITALS: BP 154/95
[2018-10-28] MEDS ORDERED: ALBUTEROL/IPRATROPIUM 2.5MG/0.5MG, 3 ML NPPB ONE (02:00)
== END 2018-10-28 02:44 | disposition home or self-care (01) ==
LOC: ED 01:54
DX: J45.41 Moderate persistent asthma with (acute) exacerbation (principal); J18.9 Pneumonia, unspecified organism; J96.90 Respiratory failure, unspecified, unspecified whether with hypoxia or hypercapnia; Z90.710 Acquired absence of both cervix and uterus; I10 Essential (primary) hypertension; F31.9 Bipolar disorder, unspecified; K21.9 Gastro-esophageal reflux disease without esophagitis
CPT/HCPCS: 94640; 99283; J7512; J7620

== ENCOUNTER 2018-11-15 14:39 | Emergency (ER) | payer MEDICARE, MEDICAID ==
[~2018-11-15] VITALS: Ht 157.5 cm; Wt 48.0 kg
[2018-11-15 15:06] VITALS: BP 129/85
== END 2018-11-15 15:21 | disposition home or self-care (01) ==
LOC: ED 15:00
DX: J45.31 Mild persistent asthma with (acute) exacerbation (principal); Z76.0 Encounter for issue of repeat prescription; I10 Essential (primary) hypertension; F31.9 Bipolar disorder, unspecified; Z90.710 Acquired absence of both cervix and uterus
CPT/HCPCS: 99283

== ENCOUNTER 2019-06-04 16:14 | Emergency (ER) | payer MEDICARE, MEDICAID ==
[~2019-06-04] VITALS: Ht 157.5 cm; Wt 47.0 kg
[2019-06-04] MEDS ORDERED: RISP2TAB3 PO (16:25)
--- NOTE | 2019-06-04 16:25 | NUR ---
PT BIB [facility] FOR CONFUSION X1.5 HOURS. PT STATES "THINGS JUST DON'T FEEL RIGHT." PT CONNECTED TO [facility]. VSS. EDMD DR. CHA TO BS FOR ASSESSMENT. AWAITING ORDERS.
[2019-06-04 16:43] LABS: CULTURE INDICATED? YES; MICROSCOPIC INDICATED
--- NOTE | 2019-06-04 16:44 | NUR ---
LABS DRAWN AND UA/UTOX COLLECTED. AWAITING RESULTS.
[2019-06-04 16:50] LABS: BASOPHILS # (AUTO) 0.03 x10^3/uL (0-0.1); BASOPHILS % (AUTO) 1 % (0-1); EOSINOPHILS # (AUTO) 0.77 x10^3/uL (0-0.4); EOSINOPHILS % (AUTO) 14 % (1-7); LYMPHOCYTES # (AUTO) 1.52 x10^3/uL (1-3.4); LYMPHOCYTES % (AUTO) 28 % (22-44); MD NO; MEAN CORPUSCULAR HEMOGLOBIN 28.4 pg (27.0-34.8); MEAN CORPUSCULAR HGB CONC 32.5 g/dL (32.4-35.8); MEAN CORPUSCULAR VOLUME 87.2 fL (80-100); MEAN PLATELET VOLUME 6.6 fL (7.4-10.4); MONOCYTES # (AUTO) 0.42 x10^3/uL (0.2-0.8); MONOCYTES % (AUTO) 8 % (2-9); NEUTROPHILS # (AUTO) 2.64 x10^3/uL (1.8-6.8); NEUTROPHILS % (AUTO) 49 % (42-75); PLATELET COUNT 327 x10^3/uL (130-400); RED CELL DISTRIBUTION WIDTH 16.5 % (9.6-15.2)
[2019-06-04 16:52] LABS: AMPHETAMINE SCREEN, URINE Negative (Negative); BARBITURATE SCREEN, URINE Negative (Negative); BENZODIAZEPINE SCREEN, URINE Negative (Negative); CANNABINOID SCREEN, URINE Positive (Negative); COCAINE SCREEN, URINE Negative (Negative); METHADONE SCREEN, URINE Negative (Negative); OPIATE SCREEN, URINE Negative (Negative)
[2019-06-04 17:02] LABS: ALBUMIN 3.8 g/dL (3.4-5.0); ANION GAP 8 mmol/L (5-15); CALCIUM 9.2 mg/dL (8.5-10.1); CHLORIDE 107 mmol/L (98-107)
[2019-06-04 17:04] LABS: SALICYLATE LEVEL < 1.7 mg/dL (2.8-20.0)
[2019-06-04 17:05] LABS: ALANINE AMINOTRANSFERASE 53 U/L (12-78); ALKALINE PHOSPHATASE 143 U/L (45-117); BILIRUBIN,TOTAL 0.2 mg/dL (0.2-1.0); CREATININE 0.79 mg/dL (0.55-1.02); TOTAL PROTEIN 7.2 g/dL (6.4-8.2)
[2019-06-04 17:49] VITALS: BP 111/90
--- NOTE | 2019-06-04 17:49 | NUR ---
DR. CHA TO BS TO UPDATE ON POC. VSS. PLAN TO DC.
== END 2019-06-04 17:56 | disposition home or self-care (01) ==
LOC: ED 17:44
DX: N30.00 Acute cystitis without hematuria (principal); I10 Essential (primary) hypertension; K21.9 Gastro-esophageal reflux disease without esophagitis; F31.9 Bipolar disorder, unspecified; J44.9 Chronic obstructive pulmonary disease, unspecified; Z90.721 Acquired absence of ovaries, unilateral
CPT/HCPCS: 36415; 80053; 80307; 81001; 85025; 87086; 99283

== ENCOUNTER 2019-06-12 17:38 | Emergency (ER) | payer MEDICARE, MEDICAID ==
[~2019-06-12] VITALS: Ht 157.5 cm; Wt 48.0 kg
[~2019-06-12 17:38] MED LIST changes: +RISP2TAB3 PO
--- NOTE | 2019-06-12 17:59 | NUR ---
PT MARY JO ARGUELLES FOR SOB. HAS FLIGHT OF IDEAS. REPORT TAKEN FROM SARAHY BRAGG. PT RESTING ON [facility]. VSS. [place].
--- NOTE | 2019-06-12 18:24 | NUR ---
PT ASLEEP ON [place]. NADN. NO SOB NOTED. VSS. CALL LIGHT IN REACH.
--- NOTE | 2019-06-12 18:50 | NUR ---
REPORT GIVEN TO SARAHY QUIROZ
--- NOTE | 2019-06-12 19:09 | NUR ---
REPORT FROM KARINA WEATHERS. PT SLEEPING IN NAD. VSS. WAITING FOR XRAY RESULTS. CALL LIGHT IN REACH
--- NOTE | 2019-06-12 20:00 | NUR ---
PT WALKED AROUND UNIT AND WHEN WE RETURNED TO ROOM, PT O2 SAT WAS 86%. ER MD INFORMED AND HE ORDERED ANOTHER BREATHING TREATMENT. AND WILL ASSESS PATIENT AFTER BREATHING TREATMENT.
[2019-06-12] MEDS ORDERED: ALBUTEROL/IPRATROPIUM 2.5MG/0.5MG, 3 ML NPPB ONE (20:30)
--- NOTE | 2019-06-12 20:53 | NUR ---
PT REASSESSED AFTER BREATHING TREATMENT AND PT O2 SAT IS 96% WITH NO DISTRESS.
--- NOTE | 2019-06-12 20:53 | NUR ---
Patient/Caregiver given discharge instructions and they have confirmed that they understand the instructions. Patient ambulatory with steady gait.
[2019-06-12 20:54] VITALS: BP 133/81
== END 2019-06-12 20:56 | disposition home or self-care (01) ==
LOC: ED 20:03
DX: J45.41 Moderate persistent asthma with (acute) exacerbation (principal); I10 Essential (primary) hypertension; F41.1 Generalized anxiety disorder; K21.9 Gastro-esophageal reflux disease without esophagitis; F31.9 Bipolar disorder, unspecified; J44.9 Chronic obstructive pulmonary disease, unspecified; Z90.710 Acquired absence of both cervix and uterus; Z93.0 Tracheostomy status
CPT/HCPCS: 71045; 93005; 94640; 99283; J7620

== ENCOUNTER 2019-06-13 01:04 | Inpatient (IN) | payer MEDICARE, MEDICAID ==
[~2019-06-13] VITALS: Ht 157.5 cm; Wt 52.8 kg
--- NOTE | 2019-06-13 01:16 | NUR ---
MARY JO ARGUELLES FROM [facility] FOR C/O ASHTMA EXACERBATION. PT. WAS D/C FROM HERE EARLIER FOR SAME. RECEIVED AN ALBUTEROL AND A DUONEB TX EN ROUTE. PER EMS PT. WAS 82% ON RA ON THEIR ARRIVAL. FSBS BY EMS 104. IV ESTABLISHED EN ROUTE. EKG DONE ON ARRIVAL AND PRESENTED TO ERMD. PT. PLACED ON CONTINUOUS PULSE OX, B/P, AND HEART MONITORS. WARM BLANKET PROVIDED. CALL LIGHT IN REACH. ALL SAFETY MEASURES OBSERVED.
[2019-06-13] MEDS ORDERED: MAGNESIUM SULFATE PMX 2GM/50ML 50 ML ONE (01:18)
[2019-06-13] MEDS ORDERED: methylPREDNISolone SOD SUCC 125 MG/2 ML ONE (01:18)
--- NOTE | 2019-06-13 01:21 | NUR ---
PT. ALSO C/O 10/10 [place]ES FROM COUGHING.
[2019-06-13] MEDS ORDERED: SODIUM CHLORIDE FLUSH 10ML SYR IVF ONE (01:30)
[2019-06-13] MEDS ORDERED: methylPREDNISolone SOD SUCC 125 MG/2 ML IVP ONE (01:30)
[2019-06-13] MEDS ORDERED: ALBUTEROL/IPRATROPIUM 2.5MG/0.5MG, 3 ML NPPB SCH (01:30)
[2019-06-13] MEDS ORDERED: MAGNESIUM SULFATE PMX 2GM/50ML 50 ML IV ONE (01:30)
--- NOTE | 2019-06-13 01:30 | NUR ---
RT COMPLETES AT BEDSIDE.
[2019-06-13 01:55] LABS: BASOPHILS # (AUTO) 0.02 x10^3/uL (0-0.1); BASOPHILS % (AUTO) 0 % (0-1); EOSINOPHILS # (AUTO) 0.57 x10^3/uL (0-0.4); EOSINOPHILS % (AUTO) 12 % (1-7); LYMPHOCYTES # (AUTO) 1.08 x10^3/uL (1-3.4); LYMPHOCYTES % (AUTO) 22 % (22-44); MD NO; MEAN CORPUSCULAR HEMOGLOBIN 28.2 pg (27.0-34.8); MEAN CORPUSCULAR HGB CONC 32.6 g/dL (32.4-35.8); MEAN CORPUSCULAR VOLUME 86.3 fL (80-100); MEAN PLATELET VOLUME 6.7 fL (7.4-10.4); MONOCYTES % (AUTO) 8 % (2-9); NEUTROPHILS # (AUTO) 2.87 x10^3/uL (1.8-6.8); NEUTROPHILS % (AUTO) 58 % (42-75); PLATELET COUNT 216 x10^3/uL (130-400); RED BLOOD COUNT 4.89 x10^6/uL (3.82-5.3); RED CELL DISTRIBUTION WIDTH 16.2 % (9.6-15.2)
[2019-06-13 02:07] LABS: ALANINE AMINOTRANSFERASE 28 U/L (12-78); ALBUMIN 3.4 g/dL (3.4-5.0); ANION GAP 7 mmol/L (5-15); CHLORIDE 108 mmol/L (98-107); CREATININE 0.65 mg/dL (0.55-1.02)
[2019-06-13 02:12] LABS: ALKALINE PHOSPHATASE 112 U/L (45-117); BILIRUBIN,TOTAL 0.3 mg/dL (0.2-1.0); TOTAL PROTEIN 6.8 g/dL (6.4-8.2); TROPONIN I < 0.015 ng/mL (0.000-0.045)
--- NOTE | 2019-06-13 02:12 | NUR ---
PT RESTING IN BED W/ EVEN RESPIRATIONS. ON FULL MONITOR W/O S/SX OF DISTRESS.
--- NOTE | 2019-06-13 02:34 | NUR ---
PROVIDER AT BEDSIDE FOR REASSESSMENT AND DISCUSSION ON POC. PT REPORTS IMPROVED BREATHING BUT "FEEL LIKE I'M BURNING UP." PT IS AFEBRILE WITH STABLE VS AT THIS TIME.
[2019-06-13] MEDS ORDERED: ENALAPRILAT 1.25 MG/ML, 2ML IVPush PRN (04:30)
--- NOTE | 2019-06-13 04:35 | NUR ---
GAVE REPORT TO SARAHY VELASQUEZ AND AWAITING TRANSPORT UPSTAIRS
[2019-06-13 05:22] VITALS: BP 118/78
[2019-06-13] MEDS: ENOXAPARIN 40 MG/0.4 ML SQ SCH (06:28)
[2019-06-13] MEDS: ALBUTEROL SULFATE 2.5 MG/3 ML NPPB SCH ×4 (07:00→20:09)
[2019-06-13 07:25] VITALS: BP 127/80
[2019-06-13] MEDS: FAMOTIDINE 20 MG TABLET PO SCH ×2 (08:53→21:11)
[2019-06-13 14:58] VITALS: BP 102/57
[2019-06-13 19:01] VITALS: BP 115/72
[2019-06-14 01:33] VITALS: BP 107/63
[2019-06-14] MEDS: ENOXAPARIN 40 MG/0.4 ML SQ SCH (06:41)
[2019-06-14] MEDS: ALBUTEROL SULFATE 2.5 MG/3 ML NPPB SCH ×4 (07:00→21:05)
[2019-06-14 07:39] VITALS: BP 115/68
[2019-06-14] MEDS: FAMOTIDINE 20 MG TABLET PO SCH ×2 (09:18→19:27)
[2019-06-14 13:20] VITALS: BP 116/68
[2019-06-14 18:55] VITALS: BP 113/66
[2019-06-15 01:44] VITALS: BP 109/68
[2019-06-15 05:46] LABS: ALANINE AMINOTRANSFERASE 21 U/L (12-78); ALBUMIN 3.1 g/dL (3.4-5.0); ANION GAP 7 mmol/L (5-15); CHLORIDE 107 mmol/L (98-107)
[2019-06-15 05:48] LABS: ALKALINE PHOSPHATASE 82 U/L (45-117); BASOPHILS # (AUTO) 0.03 x10^3/uL (0-0.1); BASOPHILS % (AUTO) 1 % (0-1); BILIRUBIN,TOTAL 0.4 mg/dL (0.2-1.0); EOSINOPHILS # (AUTO) 0.04 x10^3/uL (0-0.4); EOSINOPHILS % (AUTO) 1 % (1-7); LYMPHOCYTES # (AUTO) 1.08 x10^3/uL (1-3.4); LYMPHOCYTES % (AUTO) 17 % (22-44); MD NO; MEAN CORPUSCULAR HEMOGLOBIN 28.2 pg (27.0-34.8); MEAN CORPUSCULAR HGB CONC 32.5 g/dL (32.4-35.8); MEAN CORPUSCULAR VOLUME 86.8 fL (80-100); MEAN PLATELET VOLUME 6.7 fL (7.4-10.4); MONOCYTES # (AUTO) 0.55 x10^3/uL (0.2-0.8); MONOCYTES % (AUTO) 9 % (2-9); NEUTROPHILS # (AUTO) 4.59 x10^3/uL (1.8-6.8); NEUTROPHILS % (AUTO) 73 % (42-75); PLATELET COUNT 221 x10^3/uL (130-400); RED BLOOD COUNT 4.52 x10^6/uL (3.82-5.3); TOTAL PROTEIN 6.3 g/dL (6.4-8.2)
[2019-06-15] MEDS: ALBUTEROL SULFATE 2.5 MG/3 ML NPPB SCH ×2 (06:41→09:47)
[2019-06-15] MEDS: ENOXAPARIN 40 MG/0.4 ML SQ SCH (07:14)
[2019-06-15] MEDS ORDERED: PRED20TA PO (08:21)
[2019-06-15 08:42] VITALS: BP 122/67
[2019-06-15] MEDS: FAMOTIDINE 20 MG TABLET PO SCH (09:02)
== END 2019-06-15 10:25 | disposition home or self-care (01) | DRG 189 ==
LOC: ED 01:17 → EDIP 03:23 → 4NOR 05:00 → DCLOUNGE 06-15 10:09
PROVIDERS: ADMIT Family Medicine; ATTEND Family Medicine
DX: J96.01 Acute respiratory failure with hypoxia (principal); J45.901 Unspecified asthma with (acute) exacerbation; B18.1 Chronic viral hepatitis B without delta-agent; F31.9 Bipolar disorder, unspecified; I10 Essential (primary) hypertension; J44.9 Chronic obstructive pulmonary disease, unspecified; K21.9 Gastro-esophageal reflux disease without esophagitis; Z90.710 Acquired absence of both cervix and uterus; Z59.0 Homelessness
CPT/HCPCS: 36415; 80053; 83880; 84484; 85025; 93005; 93306; 94640; 96365; 96366; 96375; G0378; J1650; J7613; J7620; J2930; J3475; J7512